=== PATIENT | male | born 1955 | race Two or more races ===

== ENCOUNTER 2016-10-06 06:34 | Day surgery (SDC) | payer OTHER ==
[~2016-10-06] VITALS: Ht 157.5 cm; Wt 54.7 kg
[~2016-10-06 06:34] MED LIST: ESTR1TAB23 PO; OMEP20CA16 PO; RANI150T9 PO
[2016-10-06 06:46] VITALS: Ht 157.5 cm; Wt 54.7 kg
[2016-10-06] MEDS ORDERED: ATORVASTATIN (06:55)
[2016-10-06] MEDS ORDERED: ZOLOFT (06:55)
[2016-10-06] MEDS ORDERED: PEPCID (06:55)
[2016-10-06 07:22] VITALS: BP 139/78; PULSE 55; RESP 18
--- NOTE | 2016-10-06 07:43 | OPPN ---
Date/Time of Note Date/Time of Note DATE: 10/06/16 TIME: 07:40 Operative Report Preoperative Diagnosis Chronic heartburn Postoperative Diagnosis Gastroesophageal reflux disease Gastritis with erosions Operation/Procedure Performed Esophagogastroduodenoscopy and biopsy Provider: JUAN ESPITIA MD Anesthesia Type: moderate sedation Estimated blood loss: none Transfusion Required: no Specimens Gastric mucosal biopsy Grafts/Implants: none Complications: no JUAN ESPITIA MD Oct 06, 2016 07:43
[2016-10-06] MEDS ORDERED: FENTAnyl 50 MCG/ML VIAL ONE (07:44)
[2016-10-06] MEDS ORDERED: MIDAZOLAM 1 MG/ML 2 ML INJ ONE (07:45)
[2016-10-06 08:01] VITALS: BP 122/75; PULSE 53; RESP 14
--- NOTE | 2016-10-06 08:45 | GILP ---
DATE OF PROCEDURE: 10/06/2016 PROCEDURE PERFORMED: Esophagogastroduodenoscopy and biopsy. SURGEON: Dario Swenson MD. PREOPERATIVE DIAGNOSIS: Chronic heartburn. POSTOPERATIVE DIAGNOSES: 1. Gastroesophageal reflux disease. 2. Gastritis with erosions. 3. Gastric mucosal biopsies were taken for Helicobacter pylori test. INDICATION: Mr. Reuben Jefferson is a 61-year-old male patient who had chronic heartburn not responding to therapy. The patient was scheduled for endoscopic examination for further evaluation. The procedure and possible complications were well explained to the patient. He understood and consented to the procedure. DESCRIPTION OF PROCEDURE: Under influence of fentanyl and Versed, the gastroscope was carefully introduced into the esophagus. Under direct vision, it was advanced to the stomach, into the pylorus, into the duodenal bulb, and descending duodenum. FINDINGS: Esophagus: The patient had gastroesophageal reflux disease. Stomach: He had gastritis with erosions. Gastric mucosal biopsies were taken for Helicobacter pylori test. Duodenum was normal. He tolerated the procedure very well. There was no complication from the procedure. At the end of procedure, he was awake with stable vital signs and he was discharged home in care of his family. IMPRESSION: 1. Gastroesophageal reflux disease. 2. Gastritis with erosions. 3. Gastric mucosal biopsies were taken for Helicobacter pylori test. PLAN: 1. Omeprazole 40 mg p.o. b.i.d. 2. Await Helicobacter pylori test report. Dictated By: MD LAWRENCE Peña/shira/diana /Document#: [id number]
== END 2016-10-06 11:47 | disposition home or self-care (01) ==
LOC: GIL 06:34
PROVIDERS: ATTEND Internal Medicine Gastroenterology
DX: B96.81 Helicobacter pylori [H. pylori] as the cause of diseases classified elsewhere (principal); K21.9 Gastro-esophageal reflux disease without esophagitis; K29.60 Other gastritis without bleeding
CPT/HCPCS: 43239; 87081; J2250; J3010; Z7610